=== PATIENT | male | born 1985 | race African-American/Black ===

== ENCOUNTER 2021-08-11 19:48 | Emergency (ER) | payer OTHER ==
[~2021-08-11] VITALS: Ht 170.2 cm; Wt 78.0 kg
[2021-08-11 20:20] VITALS: BP 103/66
== END 2021-08-11 20:30 | disposition home or self-care (01) ==
LOC: ER 19:48
DX: Z02.89 Encounter for other administrative examinations (principal)
CPT/HCPCS: 99283